=== PATIENT | male | born 1995 | race Hispanic/Latino ===

== ENCOUNTER 2019-07-10 03:31 | Emergency (ER) | payer BC, SELFPAY ==
[2019-07-10] MEDS ORDERED: Bupivacaine 0.25% 10 ML VIAL ONE (03:47)
== END 2019-07-10 04:00 | disposition home or self-care (01) ==
LOC: ERS 03:31
DX: K06.1 Gingival enlargement (principal); K08.89 Other specified disorders of teeth and supporting structures; F41.9 Anxiety disorder, unspecified; F31.9 Bipolar disorder, unspecified
CPT/HCPCS: 64400; S0020

== ENCOUNTER 2020-05-24 06:15 | Emergency (ER) | payer BC ==
[2020-05-24] MEDS ORDERED: Ondansetron ODT 8 MG TAB ONE (06:36)
== END 2020-05-24 07:00 | disposition home or self-care (01) ==
LOC: ERS 06:15
DX: R10.84 Generalized abdominal pain (principal); R19.7 Diarrhea, unspecified; F31.9 Bipolar disorder, unspecified; F41.9 Anxiety disorder, unspecified
CPT/HCPCS: 96372; 99283; J0500; Q0162

== ENCOUNTER 2022-10-28 06:55 | Emergency (ER) | payer BC, SELFPAY ==
[2022-10-28] MEDS ORDERED: Haloperidol Lactate 5 MG/ML VIAL ONE (07:55)
[2022-10-28 07:59] LABS: #Lymphocytes 0.6 thou/uL (1.20-3.40); #Monocytes 0.3 thou/uL (0.11-0.59); #Neutrophils 10.1 thou/uL (1.40-6.50); %Eosinophils 0.1 % (0.0-10.0); %Lymphocytes 5.2 % (21.0-51.0); %Monocytes 2.7 % (0.0-10.0); %Neutrophils 92.1 % (42.0-75.0); Hemoglobin 15.8 g/dL (14.0-18.0); Mean Corpuscular HGB CONC 33.6 g/dL (32.0-36.0); Mean Corpuscular Volume 92.4 fl (78.0-98.0); Mean Platelet Volume 6.7 fL (7.4-10.4); Platelet Count 242 10x3/uL (130-400); RBC Distribution Width 11.4 % (11.5-14.5)
[2022-10-28] MEDS ORDERED: Ketorolac Tromethamine 30 MG/ML VIAL ONE (08:02)
[2022-10-28] MEDS ORDERED: Dicyclomine 20 MG/2 ML VIAL ONE (08:02)
[2022-10-28 08:17] LABS: ALT (SGPT) 12 U/L (8-55); AST (SGOT) 19 U/L (5-34); Albumin 4.6 g/dL (3.5-5.0); Alkaline Phosphatase 93 U/L (40-110); Anion Gap 15 mmol/L (10-20); BUN (Urea Nitrogen) 9 mg/dL (8.9-20.6); Bilirubin, Total 0.5 mg/dL (0.2-1.2); Calc. Creatinine Clearance 0 mL/min (70-130); Calcium 9.6 mg/dL (7.8-10.44); Carbon Dioxide 22 mmol/L (22-29); Chloride 105 mmol/L (98-107); Estimated GFR 127; Globulin 3.6 g/dL (2.4-3.5); Glucose 112 mg/dL (70-105); Lipase 16 U/L (8-78); Potassium 4.1 mmol/L (3.5-5.1); Protein, Total 8.2 g/dL (6.0-8.3); Sodium 138 mmol/L (136-145)
== END 2022-10-28 09:00 | disposition home or self-care (01) ==
LOC: ERS 06:55
DX: R10.32 Left lower quadrant pain (principal); D72.829 Elevated white blood cell count, unspecified
CPT/HCPCS: 36415; 80053; 83690; 85025; 96372; 96374; 96375; J1630; J1885